=== PATIENT | female | born 1980 | race Caucasian/White ===

== ENCOUNTER 2018-02-13 06:51 | Inpatient (IN) | payer OTHER ==
[2018-02-13] MEDS ORDERED: Sodium Chloride 0.9% 10 ML Syringe FLUSH PRN (08:17)
[2018-02-13] MEDS ORDERED: Lidocaine 1% 50 ML MDV INJECT ONE (08:17)
--- NOTE | 2018-02-13 08:22 | PCM.LDHP ---
L&D History of Present Illness - General Date of Service: 02/13/18 Admit Problem/Dx: Admission Diagnosis/Problem Admission Diagnosis/Problem Source of Information: Patient History Limitations: Reports: No Limitations - History of Present Illness Introduction:: 37-year-old 004 RHEA 02/23/18 estimated gestational age 38 weeks and 4 days presented to labor and delivery complaining of leaking of fluid since approximately 0600 hrs. Wednesday02/13/18. History of rapid labors. Blood type A positive antibody screen negative initial hemoglobin and hematocrit 11.5/38.3 platelets 209,000 rubella immune, syphilis nonreactive, hepatitis B surface antigen nonreactive, HIV normal chlamydia probe negative On 09/27/17 hemoglobin 12.6 Group B strep negative Improves with: Reports: None Worsens with: Reports: None Associated Symptoms: Reports: N - Related Data Allergies/Adverse Reactions: Allergies Allergy/AdvReac Type Severity Reaction Status Date / Time cefazolin sodium [From Anc] Allergy Hives Verified 06/06/14 06:38 Home Medications: Home Meds Vit with Ca/FA/Iron [ Plus Iron] 1 each PO DAILY 06/07/14 [ History] Past Medical History - Past Health History Medical/Surgical History: Denies Medical/Surgical History H&P Review of Systems - Review of Systems: Review Of Systems: See Below General: Reports: No Symptoms HEENT: Reports: No Symptoms Pulmonary: Reports: No Symptoms Cardiovascular: Reports: No Symptoms Gastrointestinal: Reports: No Symptoms Genitourinary: Reports: No Symptoms Musculoskeletal: Reports: No Symptoms Skin: Reports: No Symptoms Psychiatric: Reports: No Symptoms Neurological: Reports: No Symptoms Hematologic/Lymphatic: Reports: No Symptoms Immunologic: Reports: No Symptoms L&D Exam - Exam Exam: See Below - OB Specific Fundal Height In cm: 38 Contraction Duration (sec): 60 Contraction Frequency (min): 5 Contraction Intensity: Moderate Movement: Active Heart Tones: Present Heart Tones per Min: 135 Heart Rate (FHR) Variability: Moderate (6-25 bmp) Presentation: Vertex - Mott Score Mott Score Cervix Position: Anterior Mott Score Consistency: Soft Mott Score Effacement: >80% Mott Score Dilation: 3-4 cm Mott Score Infant's Station: -1 ,0 Mott Score Total: 11 - Exam General: Alert, Oriented HEENT: Conjunctiva Clear, Mucosa Moist & [place], PERRLA Neck: Supple, Trachea Midline Lungs: Clear to Auscultation, Normal Respiratory Effort Cardiovascular: Regular Rate, Regular Rhythm GI/Abdominal Exam: Normal Bowel Sounds, Soft, Non-Tender, No Organomegaly, No Distention, No Abnormal Bruit, No Mass, Pelvis Stable Genitourinary: Normal external exam, Normal bimanual exam, Normal speculum exam Extremities: Normal Inspection, Normal Range of Motion, Non-Tender, No Pedal Edema, Normal Capillary Refill Skin: Warm, Dry, Intact Neurological: Reflexes Equal Bilateral Psychiatric: Alert, Normal Affect, Normal Mood - Problem List (1) 38 weeks gestation of SNOMED Code(s): 59309680 ICD Code: Z3A.38 - 38 WEEKS GESTATION OF Status: Acute Current Visit: Yes Problem List Initiated/Reviewed/Updated: No Assessment/Plan Comment:: Plan delivery
[2018-02-13] MEDS ORDERED: Lactated Ringers 1,000 ML IV SCH (08:30)
[2018-02-13] MEDS ORDERED: Oxytocin/Lactated Ringers 10 UNIT/1,000 ML BAG IV SCH (08:30)
--- NOTE | 2018-02-13 09:52 | PCM.DEL ---
L & D Note - General Info Date of Service: 02/13/18 Mother's Due Date: 02/23/18 - Delivery Note Labor: Spontaneous Delivery Outcome: Livebirth (Male liveborn Wednesday02/13/18 at 0937 hrs. Apgars 8/ 9 nuchal cord 1 weight 3270 g/7 pounds 3.3 ounces JAIMEE) Infant Delivery Method: Spontaneous Vaginal Delivery-Single Infant Delivery Mode: Spontaneous Presentation: Right Occiput Anterior (JAIMEE) Nuchal Cord: Present (Times one easily reduced over the head) Prep: Povidone-Iodine (Betadine Anesthesia Type: None Episiotomy Type: None Laceration: None Placenta: Intact, Spontaneous (At 0937 hrs. on Wednesday02/13/18 intact examined discarded) Cord: 3 Vessels Estimated Blood Loss: 250 Resuscitation Needed: No : Suctioned, Bulb Syringe, Stimulated, Warmed, [place] Used, Warmer Used Provider: Nguyễn Kaba Score 1 min: 8 Score 5 min: 9 - General Info Date of Service: 02/13/18 Functional Status: Reports: Pain Controlled - Review of Systems General: Reports: No Symptoms HEENT: Reports: No Symptoms Pulmonary: Reports: No Symptoms Cardiovascular: Reports: No Symptoms Gastrointestinal: Reports: No Symptoms Genitourinary: Reports: No Symptoms Musculoskeletal: Reports: No Symptoms Skin: Reports: No Symptoms Neurological: Reports: No Symptoms Psychiatric: Reports: No Symptoms - Patient Data Weight - Most Recent: 172 lb Lab Results Last 24 Hours: Laboratory Results - last 24 hr 02/13/18 Range/Units 08:38 WBC 9.54 (3.98-10.04) K/mm3 RBC 4.38 (3.98-5.22) M/mm3 Hgb 13.3 (11.2-15.7) gm/L Hct 39.2 (34.1-44.9) % MCV 89.5 (79.4-94.8) fl MCH 30.4 (25.6-32.2) pg MCHC 33.9 (32.2-35.5) g/dl RDW Std Deviation 43.6 (36.4-46.3) fL Plt Count 212 (182-369) K/mm3 MPV 9.4 (9.4-12.3) fl Med Orders - Current: Current Medications Lactated Ringer's (Ringers, Lactated) 1,000 mls @ 100 mls/hr IV ASDIRECTED OMID Oxytocin/Lactated Ringer's (Pitocin In Lr 10 Units/1,000 Ml) 10 unit in 1,000 mls @ 500 mls/hr IV .CONTINUOUS OMID Sodium Chloride (Saline Flush) 10 ml FLUSH ASDIRECTED PRN PRN Reason: Keep Vein Open Discontinued Medications Lidocaine HCl (Xylocaine 1%) 50 ml INJECT ONETIME ONE Stop: 02/13/18 08:18 - Problem List & Annotations (1) 38 weeks gestation of SNOMED Code(s): 84328479 Code(s): Z3A.38 - 38 WEEKS GESTATION OF Status: Acute Current Visit: Yes (2) Labor and delivery complicated by cord around neck without compression SNOMED Code(s): 097045197, 174727299 Code(s): O69.81X0 - LABOR AND DEL COMP BY CORD AROUND NECK, W/O COMPRSN, UNSP Status: Acute Current Visit: Yes (3) Born by normal vaginal delivery SNOMED Code(s): 142021249 Code(s): O80 - ENCOUNTER FOR FULL-TERM UNCOMPLICATED DELIVERY Status: Acute Current Visit: Yes - Problem List Review Problem List Initiated/Reviewed/Updated: No - My Orders Last 24 Hours: My Active Orders 02/13/18 08:17 Activity as Tolerated [RC] PFP Communication Order [RC] ASDIRECTED Non Stress Test [RC] PER UNIT ROUTINE Notify Provider [RC] PFP Notify Provider [RC] PRN Vital Signs [RC] PER UNIT ROUTINE Sodium Chloride 0.9% [Saline Flush] 10 ml FLUSH ASDIRECTED PRN Electronic Heart Tones Ext w TOCO [WOMSER] Routine Electronic Heart Tones Internal [WOMSER] Per Unit Routine Peripheral IV Insertion Adult [OM.PC] Routine Resuscitation Status Routine 02/13/18 08:22 Heart Tones [RC] ASDIRECTED Peripheral IV Care [RC] . DIRECTED 02/13/18 08:30 Patient Status [ADT] Routine Lactated Ringers [Ringers, Lactated] 1,000 ml IV ASDIRECTED Oxytocin/Lactated Ringers [Pitocin in LR 10 Units/1,000 ML] 10 unit in 1,000 ml IV .CONTINUOUS 02/13/18 08:38 RAPID PLASMA REAGIN,RPR [CHEM] Stat TYPE AND SCREEN [BBK] Stat 02/13/18 Breakfast Regular Diet [DIET] - Plan Plan:: Plan delivery
[2018-02-13] MEDS ORDERED: Acetaminophen 325 MG Tab PO PRN (11:39)
[2018-02-13] MEDS ORDERED: Docusate Sodium 100 MG Cap PO PRN (11:39)
[2018-02-13] MEDS ORDERED: Simethicone 80 MG Tab.Chew PO PRN (11:39)
[2018-02-13] MEDS ORDERED: Benzocaine/Menthol 20%-0.5% Spray 56 GM Canister TOP PRN (11:39)
[2018-02-13] MEDS ORDERED: Lanolin 100% Cream 7 GM Tube TOP PRN (11:39)
[2018-02-13] MEDS ORDERED: Ibuprofen 600 MG Tab PO PRN (11:39)
[2018-02-13] MEDS ORDERED: Witch Hazel Medicated Pads 100/Jar TOP PRN (11:39)
--- NOTE | 2018-02-14 08:34 | PCM.DCSUM1 ---
Discharge Summary - Hospital Course Free Text/Narrative:: [facility] LIVE L/D Delivery Note Patient Name: VJIAY JUDGE Date of : 80 Patient Status: Inpatient Attending Provider: Nguyễn Kaba Date: 02/13/18 09:48 Initialization Date: 02/13/18 09:48 L & D Note - General Info Date of Service: 02/13/18 Mother's Due Date: 02/23/18 - Delivery Note Labor: Spontaneous Delivery Outcome: Livebirth (Male liveborn Wednesday02/13/18 at 0937 hrs. Apgars 8/ 9 nuchal cord 1 weight 3270 g/7 pounds 3.3 ounces JAIMEE) Delivery Method: Spontaneous Vaginal Delivery-Single Delivery Mode: Spontaneous Presentation: Right Occiput Anterior (JAIMEE) Nuchal Cord: Present (Times one easily reduced over the head) Prep: Povidone-Iodine (Betadine Anesthesia Type: None Episiotomy Type: None Laceration: None Placenta: Intact, Spontaneous (At 0937 hrs. on Wednesday02/13/18 intact examined discarded) Cord: 3 Vessels Estimated Blood Loss: 250 Resuscitation Needed: No : Suctioned, Bulb Syringe, Stimulated, Warmed, [place] Used, Warmer Used Provider: Nguyễn Kaba Score 1 min: 8 Score 5 min: 9 - General Info Date of Service: 02/13/18 Functional Status: Reports: Pain Controlled - Review of Systems General: Reports: No Symptoms HEENT: Reports: No Symptoms Pulmonary: Reports: No Symptoms Cardiovascular: Reports: No Symptoms Gastrointestinal: Reports: No Symptoms Genitourinary: Reports: No Symptoms Musculoskeletal: Reports: No Symptoms Skin: Reports: No Symptoms Neurological: Reports: No Symptoms Psychiatric: Reports: No Symptoms - Patient Data Weight - Most Recent: 172 lb Lab Results Last 24 Hours: Laboratory Results - last 24 hr 02/13/18 Range/Units 08:38 WBC 9.54 (3.98-10.04) K/mm3 RBC 4.38 (3.98-5.22) M/mm3 Hgb 13.3 (11.2-15.7) gm/L Hct 39.2 (34.1-44.9) % MCV 89.5 (79.4-94.8) fl MCH 30.4 (25.6-32.2) pg MCHC 33.9 (32.2-35.5) g/dl RDW Std Deviation 43.6 (36.4-46.3) fL Plt Count 212 (182-369) K/mm3 MPV 9.4 (9.4-12.3) fl Med Orders - Current: Current Medications Lactated Ringer's (Ringers, Lactated) 1,000 mls @ 100 mls/hr IV ASDIRECTED OMID Oxytocin/Lactated Ringer's (Pitocin In Lr 10 Units/1,000 Ml) 10 unit in 1,000 mls @ 500 mls/hr IV .CONTINUOUS OMID Sodium Chloride (Saline Flush) 10 ml FLUSH ASDIRECTED PRN PRN Reason: Keep Vein Open Discontinued Medications Lidocaine HCl (Xylocaine 1%) 50 ml INJECT ONETIME ONE Stop: 02/13/18 08:18 - Problem List & Annotations (1) 38 weeks gestation of SNOMED Code(s): 46909481 Code(s): Z3A.38 - 38 WEEKS GESTATION OF Status: Acute Current Visit: Yes (2) Labor and delivery complicated by cord around neck without compression SNOMED Code(s): 271290895, 395720958 Code(s): O69.81X0 - LABOR AND DEL COMP BY CORD AROUND NECK, W/O COMPRSN, UNSP Status: Acute Current Visit: Yes (3) Born by normal vaginal delivery SNOMED Code(s): 546975211 Code(s): O80 - ENCOUNTER FOR FULL-TERM UNCOMPLICATED DELIVERY Status: Acute Current Visit: Yes - Problem List Review Problem List Initiated/Reviewed/Updated: No - My Orders Last 24 Hours: My Active Orders 02/13/18 08:17 Activity as Tolerated [RC] PFP Communication Order [RC] ASDIRECTED Non Stress Test [RC] PER UNIT ROUTINE Notify Provider [RC] PFP Notify Provider [RC] PRN Vital Signs [RC] PER UNIT ROUTINE Sodium Chloride 0.9% [Saline Flush] 10 ml FLUSH ASDIRECTED PRN Electronic Heart Tones Ext w TOCO [WOMSER] Routine Electronic Heart Tones Internal [WOMSER] Per Unit Routine Peripheral IV Insertion Adult [OM.PC] Routine Resuscitation Status Routine 02/13/18 08:22 Heart Tones [RC] ASDIRECTED Peripheral IV Care [RC] . DIRECTED 02/13/18 08:30 Patient Status [ADT] Routine Lactated Ringers [Ringers, Lactated] 1,000 ml IV ASDIRECTED Oxytocin/Lactated Ringers [Pitocin in LR 10 Units/1,000 ML] 10 unit in 1,000 ml IV .CONTINUOUS 02/13/18 08:38 RAPID PLASMA REAGIN,RPR [CHEM] Stat TYPE AND SCREEN [BBK] Stat 02/13/18 Breakfast Regular Diet [DIET] - Plan Plan:: Plan delivery HPI Initial Comments: [facility] LIVE L/D Delivery Note Patient Name: VIJAY JUDGE Date of : 80 Patient Status: Inpatient Attending Provider: Nguyễn Kaba Date: 02/13/18 09:48 Initialization Date: 02/13/18 09:48 L & D Note - General Info Date of Service: 02/13/18 Mother's Due Date: 02/23/18 - Delivery Note Labor: Spontaneous Delivery Outcome: Livebirth (Male liveborn Wednesday02/13/18 at 0937 hrs. Apgars 8/ 9 nuchal cord 1 weight 3270 g/7 pounds 3.3 ounces JAIMEE) Delivery Method: Spontaneous Vaginal Delivery-Single Infant Delivery Mode: Spontaneous Presentation: Right Occiput Anterior (JAIMEE) Nuchal Cord: Present (Times one easily reduced over the head) Prep: Povidone-Iodine (Betadine Anesthesia Type: None Episiotomy Type: None Laceration: None Placenta: Intact, Spontaneous (At 0937 hrs. on Wednesday02/13/18 intact examined discarded) Cord: 3 Vessels Estimated Blood Loss: 250 Resuscitation Needed: No [place]: Suctioned, Bulb Syringe, Stimulated, Warmed, [place] Used, Warmer Used Provider: Nguyễn Kaba Score 1 min: 8 Score 5 min: 9 - General Info Date of Service: 02/13/18 Functional Status: Reports: Pain Controlled - Review of Systems General: Reports: No Symptoms HEENT: Reports: No Symptoms Pulmonary: Reports: No Symptoms Cardiovascular: Reports: No Symptoms Gastrointestinal: Reports: No Symptoms Genitourinary: Reports: No Symptoms Musculoskeletal: Reports: No Symptoms Skin: Reports: No Symptoms Neurological: Reports: No Symptoms Psychiatric: Reports: No Symptoms - Patient Data Weight - Most Recent: 172 lb Lab Results Last 24 Hours: Laboratory Results - last 24 hr 02/13/18 Range/Units 08:38 WBC 9.54 (3.98-10.04) K/mm3 RBC 4.38 (3.98-5.22) M/mm3 Hgb 13.3 (11.2-15.7) gm/L Hct 39.2 (34.1-44.9) % MCV 89.5 (79.4-94.8) fl MCH 30.4 (25.6-32.2) pg MCHC 33.9 (32.2-35.5) g/dl RDW Std Deviation 43.6 (36.4-46.3) fL Plt Count 212 (182-369) K/mm3 MPV 9.4 (9.4-12.3) fl Med Orders - Current: Current Medications Lactated Ringer's (Ringers, Lactated) 1,000 mls @ 100 mls/hr IV ASDIRECTED OMID Oxytocin/Lactated Ringer's (Pitocin In Lr 10 Units/1,000 Ml) 10 unit in 1,000 mls @ 500 mls/hr IV .CONTINUOUS OMID Sodium Chloride (Saline Flush) 10 ml FLUSH ASDIRECTED PRN PRN Reason: Keep Vein Open Discontinued Medications Lidocaine HCl (Xylocaine 1%) 50 ml INJECT ONETIME ONE Stop: 02/13/18 08:18 - Problem List & Annotations (1) 38 weeks gestation of SNOMED Code(s): 68108332 Code(s): Z3A.38 - 38 WEEKS GESTATION OF Status: Acute Current Visit: Yes (2) Labor and delivery complicated by cord around neck without compression SNOMED Code(s): 404294320, 882265420 Code(s): O69.81X0 - LABOR AND DEL COMP BY CORD AROUND NECK, W/O COMPRSN, UNSP Status: Acute Current Visit: Yes (3) Born by normal vaginal delivery SNOMED Code(s): 225748521 Code(s): O80 - ENCOUNTER FOR FULL-TERM UNCOMPLICATED DELIVERY Status: Acute Current Visit: Yes - Problem List Review Problem List Initiated/Reviewed/Updated: No - My Orders Last 24 Hours: My Active Orders 02/13/18 08:17 Activity as Tolerated [RC] PFP Communication Order [RC] ASDIRECTED Non Stress Test [RC] PER UNIT ROUTINE Notify Provider [RC] PFP Notify Provider [RC] PRN Vital Signs [RC] PER UNIT ROUTINE Sodium Chloride 0.9% [Saline Flush] 10 ml FLUSH ASDIRECTED PRN Electronic Heart Tones Ext w TOCO [WOMSER] Routine Electronic Heart Tones Internal [WOMSER] Per Unit Routine Peripheral IV Insertion Adult [OM.PC] Routine Resuscitation Status Routine 02/13/18 08:22 Heart Tones [RC] ASDIRECTED Peripheral IV Care [RC] . DIRECTED 02/13/18 08:30 Patient Status [ADT] Routine Lactated Ringers [Ringers, Lactated] 1,000 ml IV ASDIRECTED Oxytocin/Lactated Ringers [Pitocin in LR 10 Units/1,000 ML] 10 unit in 1,000 ml IV .CONTINUOUS 02/13/18 08:38 RAPID PLASMA REAGIN,RPR [CHEM] Stat TYPE AND SCREEN [BBK] Stat 02/13/18 Breakfast Regular Diet [DIET] - Plan Plan:: Plan delivery Brief History: [facility] LIVE . L/D Delivery Note. Patient Name: Hellen JUDGE Record Number: [id number]. Date of : 80Patient Status: Inpatient. Attending Provider: Nguyễn Kaba Number: [id number]. Date: 02/13/18 09:48Initialization Date: 02/13/18 09:48. L & D Note. - General Info. Date of Service: 02/13/18. Mother's Due Date: . - Delivery Note. Labor: Spontaneous. Delivery Outcome: Livebirth (Male liveborn Wednesday02/13/18 at 0937 hrs. Apgars 8/9 nuchal cord 1 weight 3270 g/7 pounds 3.3 ounces JAIMEE). Infant Delivery Method: Spontaneous Vaginal Delivery- Single. Infant Delivery Mode: Spontaneous. Presentation: Right Occiput Anterior (JAIMEE). Nuchal Cord: Present (Times one easily reduced over the head). Prep: Povidone-Iodine (Betadine. Anesthesia Type: None. Episiotomy Type: None. Laceration: None. Placenta: Intact, Spontaneous (At 0937 hrs. on Wednesday02/13/18 intact examined discarded). Cord: 3 Vessels. Estimated Blood Loss: 250. Resuscitation Needed: No. : Suctioned, Bulb Syringe, Stimulated, Warmed, [place] Used, Warmer Used. Provider: Nguyễn Kaba. Score 1 min: 8. Score 5 min: 9. - General Info. Date of Service: 02/13/18. Functional Status: Reports: Pain Controlled. - Review of Systems. General: Reports: No Symptoms. HEENT: Reports: No Symptoms. Pulmonary: Reports : No Symptoms. Cardiovascular: Reports: No Symptoms. Gastrointestinal: Reports : No Symptoms. Genitourinary: Reports: No Symptoms. Musculoskeletal: Reports: No Symptoms. Skin: Reports: No Symptoms. Neurological: Reports: No Symptoms. Psychiatric: Reports: No Symptoms. - Patient Data. Weight - Most Recent: 172 lb. Lab Results Last 24 Hours: Laboratory Results - last 24 hr. 02/13/18Range /Units. 08:38. WBC 9.54 (3.98-10.04) K/mm3. RBC 4.38 (3.98-5.22) M/mm3. Hgb 13.3 (11.2-15.7) gm/L. Hct 39.2 (34.1-44.9) %. MCV 89.5 (79.4-94.8) fl. MCH 30.4 (25.6-32.2) pg. MCHC 33.9 (32.2-35.5) g/dl. RDW Std Deviation 43.6 (36.4-46.3) fL. Plt Count 212 (182-369) K/mm3. MPV 9.4 (9.4-12.3) fl. Med Orders - Current: Current Medications. Lactated Ringer's (Ringers, Lactated) 1,000 mls @ 100 mls/hr IV ASDIRECTED OMID. Oxytocin/Lactated Ringer' s (Pitocin In Lr 10 Units/1,000 Ml) 10 unit in 1,000 mls @ 500 mls/hr IV .CONTINUOUS OMID. Sodium Chloride (Saline Flush) 10 ml FLUSH ASDIRECTED PRN. PRN Reason: Keep Vein Open. Discontinued Medications. Lidocaine HCl ( Xylocaine 1%) 50 ml INJECT ONETIME ONE. Stop: 02/13/18 08:18. - Problem List & Annotations. (1) 38 weeks gestation of . SNOMED Code(s): 88890438. Code(s): Z3A.38 - 38 WEEKS GESTATION OF Status: Acute Current Visit: Yes. (2) Labor and delivery complicated by cord around neck without compression. SNOMED Code(s): 718861614, 736529517. Code(s): O69.81X0 - LABOR AND DEL COMP BY CORD AROUND NECK, W/O COMPRSN, UNSP Status: Acute Current Visit: Yes. (3) Born by normal vaginal delivery. SNOMED Code(s): 375882473. Code(s): O80 - ENCOUNTER FOR FULL-TERM UNCOMPLICATED DELIVERY Status: Acute Current Visit: Yes. - Problem List Review. Problem List Initiated/Reviewed/ Updated: No. - My Orders. Last 24 Hours: My Active Orders. 02/13/18 08:17. Activity as Tolerated [RC] PFP. Communication Order [RC] ASDIRECTED. Non Stress Test [RC] PER UNIT ROUTINE. Notify Provider [RC] PFP. Notify Provider [RC] PRN. Vital Signs [RC] PER UNIT ROUTINE. Sodium Chloride 0.9% [ Saline Flush] 10 ml FLUSH ASDIRECTED PRN. Electronic Heart Tones Ext w TOCO [WOMSER] Routine. Electronic Heart Tones Internal [WOMSER] Per Unit Routine. Peripheral IV Insertion Adult [OM.PC] Routine. Resuscitation Status Routine. 02/13/18 08:22. Heart Tones [RC] ASDIRECTED. Peripheral IV Care [RC] . DIRECTED. 02/13/18 08:30. Patient Status [ADT] Routine. Lactated Ringers [Ringers, Lactated] 1,000 ml IV ASDIRECTED. Oxytocin/Lactated Ringers [Pitocin in LR 10 Units/1,000 ML] 10 unit in 1,000 ml IV .CONTINUOUS. 02/13/18 08:38. RAPID PLASMA REAGIN,RPR [CHEM] Stat. TYPE AND SCREEN [BBK] Stat. 02/13/18 Breakfast. Regular Diet [DIET]. - Plan. Plan:: Plan delivery Diagnosis: Stroke: No - Discharge Data Discharge Date: 02/14/18 Discharge Disposition: Home, Self-Care 01 Condition: Good - Discharge Diagnosis/Problem(s) (1) 38 weeks gestation of SNOMED Code(s): 53629884 ICD Code: Z3A.38 - 38 WEEKS GESTATION OF Status: Acute Current Visit: Yes (2) Labor and delivery complicated by cord around neck without compression SNOMED Code(s): 513748691, 459592076 ICD Code: O69.81X0 - LABOR AND DEL COMP BY CORD AROUND NECK, W/O COMPRSN, UNSP Status: Acute Current Visit: Yes Qualifiers: Fetus number: single or unspecified fetus Qualified Code(s): O69.81X0 - Labor and delivery complicated by cord around neck, without compression, not applicable or unspecified (3) Born by normal vaginal delivery SNOMED Code(s): 981444453 ICD Code: O80 - ENCOUNTER FOR FULL-TERM UNCOMPLICATED DELIVERY Status: Acute Current Visit: Yes - Patient Summary/Data Complications: None Consults: None Hospital Course: Uneventful - Patient Instructions Diet: Regular Diet as Tolerated Driving: Do Not Drive (48 hours) Showering/Bathing: May Shower Notify Provider of: Fever, Increased Pain, Swelling and Redness, Drainage, Nausea and/or Vomiting - Discharge Plan *PRESCRIPTION DRUG MONITORING PROGRAM REVIEWED*: Not Applicable *COPY OF PRESCRIPTION DRUG MONITORING REPORT IN PATIENT [place]: Not Applicable Home Medications: Home Meds Vit with Ca/FA/Iron [ Plus Iron] 1 each PO DAILY 06/07/14 [ History] Acetaminophen [Tylenol] 650 mg PO Q4H PRN tablet 02/14/18 [Rx] Benzocaine/Menthol [Dermoplast Pain Relief [place]] 1 spray TOP ASDIRECTED PRN canister 02/14/18 [Rx] Docusate Sodium [Colace] 100 mg PO BID PRN cap 02/14/18 [Rx] Ibuprofen [Motrin] 600 mg PO Q4H PRN tablet 02/14/18 [Rx] Lanolin [Lansinoh HPA] 1 applic TOP ASDIRECTED PRN tube 02/14/18 [Rx] Simethicone 80 mg PO Q4H PRN tab.chew 02/14/18 [Rx] Witch Bev [Tucks] 1 pad TOP ASDIRECTED PRN pad 02/14/18 [Rx] Patient Handouts: Vaginal Delivery Referrals: Beatriz Lopez MD [Primary Care Provider] - (Will call for an appointment) - Discharge Summary/Plan Comment DC Time >30 min.: No - Patient Data Vitals - Most Recent: Last Vital Signs Temp 97.9 F 02/14/18 01:54 Pulse 62 02/14/18 01:54 Resp 16 02/14/18 01:54 BP 110/54 L 02/14/18 01:54 Pulse Ox 100 02/14/18 01:54 Weight - Most Recent: 172 lb I&O - Last 24 hours: Intake & Output 02/13/18 02/14/18 02/14/18 22:59 06:59 14:59 Intake Total 300 Balance 300 Lab Results - Last 24 hrs: Laboratory Results - last 24 hr 02/13/18 02/13/18 02/14/18 Range/Units 08:38 08:38 05:57 WBC 9.54 10.82 H (3.98-10.04) K/mm3 RBC 4.38 3.84 L (3.98-5.22) M/mm3 Hgb 13.3 11.6 (11.2-15.7) gm/L Hct 39.2 34.8 (34.1-44.9) % MCV 89.5 90.6 (79.4-94.8) fl MCH 30.4 30.2 (25.6-32.2) pg MCHC 33.9 33.3 (32.2-35.5) g/dl RDW Std Deviation 43.6 44.1 (36.4-46.3) fL Plt Count 212 205 (182-369) K/mm3 MPV 9.4 9.4 (9.4-12.3) fl Blood Type A POSITIVE Gel Antibody Screen Negative Med Orders - Current: Current Medications Acetaminophen (Tylenol) 650 mg PO Q4H PRN PRN Reason: mild pain or fever Benzocaine/Menthol (Dermoplast Pain Relief [place]) 0 gm TOP ASDIRECTED PRN PRN Reason: Perineal Comfort Measure Docusate Sodium (Colace) 100 mg PO BID PRN PRN Reason: Constipation Emollient Ointment (Lansinoh Hpa) 0 gm TOP ASDIRECTED PRN PRN Reason: Sore Nipples Ibuprofen (Motrin) 600 mg PO Q4H PRN PRN Reason: Mild pain or fever Prenat Multivit/[place]/Iron/Folic Ac ( Plus Iron) 1 each PO DAILY OMID Simethicone (Simethicone) 80 mg PO Q4H PRN PRN Reason: Gas Witch Bev (Tucks) 1 pad TOP ASDIRECTED PRN PRN Reason: Hemorrhoid pain Discontinued Medications Lactated Ringer's (Ringers, Lactated) 1,000 mls @ 100 mls/hr IV ASDIRECTED OMID Oxytocin/Lactated Ringer's (Pitocin In Lr 10 Units/1,000 Ml) 10 unit in 1,000 mls @ 500 mls/hr IV .CONTINUOUS [facility] Lidocaine HCl (Xylocaine 1%) 50 ml INJECT ONETIME ONE Stop: 02/13/18 08:18 Last Admin: 02/13/18 13:27 Dose: Not Given Sodium Chloride (Saline Flush) 10 ml FLUSH ASDIRECTED PRN PRN Reason: Keep Vein Open
[2018-02-14] MEDS ORDERED: Prenatal Multivitamin with Calcium/Folic Acid/Iron Tab PO SCH (09:00)
[2018-02-14 15:16] VITALS: BP 126/96
== END 2018-02-14 18:30 | disposition home or self-care (01) | DRG 775 ==
LOC: JD.OB 06:51 → JD.OBCHECK 06:51 → JD.OB 08:30 → OBSVTOIN 09:37 → JD.OB 09:38
PROVIDERS: ADMIT Obstetrics & Gynecology; ATTEND Obstetrics & Gynecology
PROC: 10E0XZZ Delivery of Products of Conception, External Approach (ICD-10-PCS; principal; 2018-02-13)
DX: O69.81X0 Labor and delivery complicated by cord around neck, without compression, not applicable or unspecified (principal); Z37.0 Single live birth; Z3A.38 38 weeks gestation of pregnancy; Z88.1 Allergy status to other antibiotic agents
CPT/HCPCS: 36415; 59025; 59409; 85027; 86592; 86850; 86900; 86901